=== PATIENT | female | born 1945 | race Two or more races ===

== ENCOUNTER 2017-10-30 13:45 | Outpatient (CLI) | payer MEDICARE, BC ==
--- NOTE | 2017-10-31 12:20 | Mammography Report ---
ROUTINE DIGITAL SCREENING MAMMOGRAPHY: 10/30/2017 HISTORY: Family history of breast cancer, for screening. TECHNIQUE: Bilateral digital CC and MLO projections. COMPARISON: 06/21/2016, 07/08/2015, 05/29/2014, 11/20/2012, and 08/23/2011. FINDINGS: The breast tissue is heterogeneously dense. Scattered coarse and punctate calcifications are unchanged compared with priors. No suspicious masses, new clustered microcalcifications, architectural distortion or skin thickening is appreciated. No interval change. IMPRESSION: NEGATIVE. BI-RADS CATEGORY 1 - NEGATIVE. SUGGEST ROUTINE FOLLOWUP SCREENING MAMMOGRAPHY IN 12 MONTHS. STANDARD QUALIFYING STATEMENTS: 1. This examination was reviewed with the aid of Computer-Aided Detection (CAD). 2. A negative or benign imaging report should not delay biopsy if clinically suspicious findings are present. Consider surgical consultation if warranted. More than 5% of cancers are not identified by imaging. 3. Dense breasts may obscure an underlying neoplasm. TD: 10/31/2017 12:19
== END 2017-10-30 13:46 | disposition home or self-care (01) ==
LOC: DI 13:45
PROVIDERS: ATTEND Internal Medicine
DX: Z12.31 Encounter for screening mammogram for malignant neoplasm of breast (principal); Z80.3 Family history of malignant neoplasm of breast
CPT/HCPCS: 77067

== ENCOUNTER 2018-12-05 14:49 | Outpatient (CLI) | payer MEDICARE, BC ==
--- NOTE | 2018-12-06 08:30 | Mammography Report ---
Reason: SCREENING MAMMO Procedure Date: 12/05/2018 Accession Number: [id number] / [id number] Procedure: [facility] - Screening Mammo w/Thanh CPT Code: FULL RESULT: EXAM: Screening Mammo w/Thanh DATE: 12/05/2018 3:18 PM CLINICAL HISTORY: Screening encounter. Family history of breast cancer in the daughter at age 38. TECHNIQUE: (B) - Bilateral CC and MLO views were obtained. COMPARISON: 10/30/2017 through 05/29/2014. PARENCHYMAL PATTERN: (D) - The breast(s) demonstrate(s) heterogeneously dense fibroglandular parenchyma. FINDINGS: There are coarse bilateral typically benign calcifications in a stable pattern. There are no suspicious masses, calcifications, or areas of distortion. IMPRESSION: Benign findings. BI-RADS category 2. RECOMMENDATION: (ANNUAL) - Recommend routine annual screening mammography. BI-RADS CATEGORY: (2) - Benign Findings. STANDARD QUALIFYING STATEMENTS: 1. This examination was not reviewed with the aid of Computer-Aided Detection (CAD). 2. A negative or benign imaging report should not preclude biopsy if clinically suspicious findings are present. 3. Dense breasts may obscure an underlying neoplasm. 4. This examination was reviewed with the aid of 3D breast imaging (tomosynthesis).
== END 2018-12-05 14:50 | disposition home or self-care (01) ==
LOC: DI 14:49
PROVIDERS: ATTEND Internal Medicine
DX: Z12.31 Encounter for screening mammogram for malignant neoplasm of breast (principal); Z80.3 Family history of malignant neoplasm of breast
CPT/HCPCS: 77063; 77067

== ENCOUNTER 2021-08-18 10:48 | Outpatient (CLI) | payer MEDICARE, BC ==
--- NOTE | 2021-08-19 10:00 | Mammography Report ---
BILATERAL DIGITAL SCREENING MAMMOGRAM 3D/2D: 08/18/2021 CLINICAL: Family history of breast cancer. Routine screening. Comparison is made to exams dated: 12/05/2018 mammogram, 10/30/2017 mammogram, 06/21/2016 mammogram, 04/2015 mammogram, 05/29/2014 mammogram, and 11/20/2012 mammogram - [facility]. The tissue of both breasts is heterogeneously dense. This may lower the sensitivity of mammography. There are benign calcifications in the right breast. No significant masses, calcifications, or other findings are seen in either breast. There has been no significant interval change. IMPRESSION: BENIGN There is no mammographic evidence of malignancy. A 1 year screening mammogram is recommended. This exam was interpreted at Station ID: [id number]. NOTE: For mammograms, a report in lay terms will be sent to the patient. Approximately 15% of breast malignancies will not be visualized mammographically. In the management of a palpable breast mass, a negative mammogram must not discourage biopsy of a clinically suspicious lesion. Electronically Signed By: Lv Arteaga M.D. ddp/penrad:08/18/2021 14:29:55 ACR BI-RADS Category 2: Benign Finding(s) 3342F PARENCHYMAL PATTERN: (D) - The breast(s) demonstrate(s) heterogeneously dense fibroglandular [place]. BI-RADS CATEGORY: (2) - 2 RECOMMENDATION: (ANNUAL) - Recommend routine annual screening mammography. [id number] 1 year screening LATERALITY: (B)
== END 2021-08-18 10:49 | disposition home or self-care (01) ==
LOC: DI.N 10:48
PROVIDERS: ATTEND Internal Medicine
DX: Z12.31 Encounter for screening mammogram for malignant neoplasm of breast (principal); Z80.3 Family history of malignant neoplasm of breast

== ENCOUNTER 2022-05-29 08:15 | Outpatient (CLI) | payer MEDICARE, BC ==
--- NOTE | 2022-05-29 11:43 | DEXA Report ---
PROCEDURE: Dexa Spine and/or Hip INDICATIONS: POST MENOPAUSAL TECHNIQUE: Dual energy x-ray absorptiometry (DXA) was performed on a [employer] System. Regions measur ed are the AP Spine, femoral neck, and (if needed) forearm. COMPARISON: None. FINDINGS: Lumbar Spine: Bone Mineral Density 1.296 g/cm/cm, T score 1.0 Left Femur Neck: Bone Mineral Density 0.800 g/cm/cm, T score -1.7 Left Femur Total: Bone Mineral Density 0.868 g/cm/cm, T score -1.1 * Indicates clinically significant change (T score greater or equal to -1.0: NORMAL) (T score from -1.1 to -2.4: OSTEOPENIA) (T score less than or equal to -2.5 to: OSTEOPOROSIS) Impression: 1. Osteopenia of the left femoral neck. Reviewed by: Debra Angeles MD on 05/29/2022 11:42 AM PDT Approved by: Debra Angeles MD on 05/29/2022 11:42 AM PDT Station ID: [id number] AP spine L1-L4 - [id number] Left femoral neck - [id number] Left hip - [id number]
== END 2022-05-29 08:16 | disposition home or self-care (01) ==
LOC: DI 08:15
PROVIDERS: ATTEND Internal Medicine
DX: M85.88 Other specified disorders of bone density and structure, other site (principal); Z78.0 Asymptomatic menopausal state

== ENCOUNTER 2023-05-07 14:00 | Outpatient (CLI) | payer MEDICARE, BC ==
--- NOTE | 2023-05-08 15:49 | Mammography Report ---
BILATERAL DIGITAL SCREENING MAMMOGRAM 3D/2D: 05/07/2023 CLINICAL: Routine screening. Comparison is made to exams dated: 08/18/2021 mammogram, 12/05/2018 mammogram, 10/30/2017 mammogram, 05/31 mammogram, 07/08/2015 mammogram, and 05/29/2014 mammogram - [facility]. There are scattered areas of fibroglandular density in both breasts (category b / 25%-50% glandular t issue). There are benign calcifications in the right breast. No significant masses, calcifications, or other findings are seen in either breast. There has been no significant interval change. IMPRESSION: BENIGN There is no mammographic evidence of malignancy. A 1 year screening mammogram is recommended. Based on the Tyrer Cuzick model (a risk assessment model) the patients lifetime risk is 3.4% and her 10 year risk is 0.0%. According to the ACR, ACS, and NCCN guidelines, an annual breast MRI exam ector g with mammogram is recommended if the patients lifetime risk is 20% or greater. This exam was interpreted at Station ID: [id number]. NOTE: For mammograms, a report in lay terms will be sent to the patient. Approximately 15% of breast malignancies will not be visualized mammographically. In the management of a palpable breast mass, a negative mammogram must not discourage biopsy of a clinically suspicious lesion. Electronically Signed By: Vanessa rosario/tanner:05/08/2023 10:12:41 letter sent: No_Letter ACR BI-RADS Category 2: Benign Finding(s) 3342F PARENCHYMAL PATTERN: (A) - The breast(s) demonstrate(s) scattered fibroglandular densities. BI-RADS CATEGORY: (2) - 2 Mammogram [id number] 1 year screening LATERALITY: (B)
== END 2023-05-07 14:01 | disposition home or self-care (01) ==
LOC: DI 14:00
PROVIDERS: ATTEND Internal Medicine
DX: Z12.31 Encounter for screening mammogram for malignant neoplasm of breast (principal); R92.323 Mammographic fibroglandular density, bilateral breasts